=== PATIENT | male | born 1995 | race Caucasian/White ===

== ENCOUNTER 2016-05-11 20:12 | Emergency (ER) | payer MEDICAID ==
[~2016-05-11] VITALS: Ht 182.9 cm; Wt 63.5 kg
[2016-05-11 20:15] VITALS: BP 130/92; PULSE 76; RESP 18; TEMP 98.5; O2SAT 100
[2016-05-11] MEDS ORDERED: KETOROLAC TROMETHAMINE 60 MG/2 ML VIAL IM ONE (20:30)
[2016-05-11 21:15] VITALS: BP 128/87; PULSE 87; RESP 18; TEMP 98.5; O2SAT 100
== END 2016-05-11 21:15 | disposition home or self-care (01) ==
LOC: SED 20:12
DX: S39.012A Strain of muscle, fascia and tendon of lower back, initial encounter (principal); X58.XXXA Exposure to other specified factors, initial encounter; Y93.44 Activity, trampolining; Y92.89 Other specified places as the place of occurrence of the external cause; Y99.8 Other external cause status
CPT/HCPCS: 96372; 99283; J1885